=== PATIENT | male | born 1945 | race Caucasian/White ===

== ENCOUNTER → 2018-11-27 | Outpatient (CLI) | payer MEDICARE, BC ==
--- NOTE | 2018-11-27 10:18 | XR ---
EXAM TYPE: LUMBAR SPINE X RAY SERIES COMPARISON: NONE HISTORY: Low back pain TECHNIQUE: 4 views are submitted. FINDINGS: Alignment is anatomic. The pedicles are intact. The transverse processes are intact. There is no s pondylolysis or spondylolisthesis. Hypertrophic and degenerative changes are seen at all levels. IMPRESSION: 1. No acute process. 2. Multilevel degenerative disc disease and hypertrophic spurring.
== END | disposition home or self-care (01) ==
LOC: RADXRMAIN 09:48
PROVIDERS: ATTEND Family Medicine
DX: M51.16 Intervertebral disc disorders with radiculopathy, lumbar region (principal)
CPT/HCPCS: 72100

== ENCOUNTER → 2019-04-22 | Outpatient (CLI) | payer MEDICARE, BC | END | disposition home or self-care (01) | LOC: LABPAT 06:47 | PROVIDERS: ATTEND Orthopaedic Surgery | DX: Z01.812 Encounter for preprocedural laboratory examination (principal); M16.12 Unilateral primary osteoarthritis, left hip | CPT/HCPCS: 87070 ==

== ENCOUNTER 2019-04-29 06:20 | Inpatient (IN) | payer MEDICARE, BC ==
--- NOTE | 2019-04-28 09:18 | HP ---
HISTORY AND PHYSICAL REASON FOR ADMISSION: Surgery is scheduled for 04/29/2019 Ace Hassan is a 73-year-old patient seen with symptomatic left hip osteoarthritis. After treatment options were discussed with him, he elected to proceed with left total hip arthroplasty. Consent regarding procedure was obtained. Medical clearance was provided by Dr. Wilian Peterson. PAST MEDICAL HISTORY: Hypertension. PAST SURGICAL HISTORY: Shoulder surgery. MEDICATIONS: Atenolol and enalapril. ALLERGIES: None reported. SOCIAL HISTORY: Smokes half pack of cigarettes daily. PHYSICAL EXAMINATION: Evaluation of the left hip: There is very limited range of motion with severe pain. Positive hip impingement sign. Diffuse tenderness. Straight leg raise negative. Distal neurovascular exam is intact. RADIOGRAPHS: Radiographs of the left hip reveal severe osteoarthritic changes. IMPRESSION: 1. Left hip osteoarthritis. 2. Hypertension. PLAN: Direct anterior left total hip arthroplasty. Surgery scheduled for 04/29/2019. MMODL / IJN: [id number] /
[~2019-04-29 06:20] MED LIST: ACETAMINOPHEN TAB 500 MG TAB PO ONE; MELOXICAM 7.5 MG TAB PO ONE; ROPIVACAINE 246.25 MG, EPINEPHrine 0.5 MG, KETOROLAC 30 MG, cloNIDine HCL/PF 80 MCG, WA... MISCELLANE ONE; TRANEXAMIC ACID 1,000 MG in SODIUM CHLORIDE 0.9% 100 ML IVPB ONE; ceFAZolin 3 GM in SODIUM CHLORIDE 0.9% 100 ML IVPB ONE
[2019-04-29] MEDS: LACTATED RINGERS 1,000 ML IV SCH ×3 (07:10→23:58)
[2019-04-29] MEDS ORDERED: LIDOCAINE 1% 20 ML VIAL (10MG/ML) FOR IV START SQ ONE (07:11)
[2019-04-29] MEDS ORDERED: DEXAMETHASONE SOD PHOSPHATE 4 MG/ML 1 ML VIAL IV ONE (07:12)
[2019-04-29] MEDS ORDERED: ONDANSETRON 4 MG/2 ML VIAL IVP ONE (07:12)
[2019-04-29] MEDS ORDERED: PROPOFOL 10 MG/ML 20 ML VIAL IV ONE (07:30)
[2019-04-29] MEDS ORDERED: fentaNYL (PF) 50 MCG/ML 2 ML AMP ONE (07:30)
[2019-04-29] MEDS ORDERED: SODIUM CHLORIDE 0.9% 100 ML BAG ONE (07:30)
[2019-04-29] MEDS ORDERED: KETAMINE 10 MG/ML 20 ML VIAL ONE (07:30)
[2019-04-29] MEDS ORDERED: ePHEDrine SULFATE/0.9% NACL/PF 50 MG/5 ML SYRINGE IV ONE (07:30)
[2019-04-29] MEDS ORDERED: TRANEXAMIC ACID 1,000 MG/10 ML VIAL ONE (07:30)
[2019-04-29] MEDS ORDERED: MIDAZOLAM 2 MG/2 ML VIAL ONE (07:30)
[2019-04-29] MEDS ORDERED: LACTATED RINGERS 1,000 ML IV ONE (08:58)
--- NOTE | 2019-04-29 09:49 | FL ---
EXAMINATION TYPE: FL guidance operating room DATE OF EXAM: 04/29/2019 HISTORY: Flouroscopy time 39 seconds of fluoroscopy provided. IMPRESSION: 1. Fluoroscopy time.
--- NOTE | 2019-04-29 09:49 | XR ---
EXAMINATION TYPE: XR Hip Limited LT DATE OF EXAM: 04/29/2019 COMPARISON: NONE HISTORY: Postop TECHNIQUE: One view submitted. FINDINGS: There is postsurgical change in near anatomic alignment. There is soft tissue edema and emphysema. IMPRESSION: 1. Postoperative change. Appears in near-anatomic alignment.
[2019-04-29] MEDS ORDERED: HYDROcodone/APAP 7.5-325MG 1 EACH TAB PO PRN ×2 (09:53)
[2019-04-29] MEDS ORDERED: HYDROmorphone 0.5 MG/0.5 ML SYRINGE IVP PRN ×3 (09:53)
[2019-04-29] MEDS ORDERED: NALOXONE 0.4 MG/ML 1 ML VIAL IV PRN (09:53)
[2019-04-29] MEDS ORDERED: ONDANSETRON 4 MG/2 ML VIAL IVP PRN (09:53)
[2019-04-29] MEDS ORDERED: traMADol 50 MG TAB PO PRN (09:53)
--- NOTE | 2019-04-29 09:53 | P.OP ---
Date of Procedure: 04/29/19 Preoperative Diagnosis: Left hip osteoarthritis Postoperative Diagnosis: Left hip osteoarthritis Procedure(s) Performed: Direct anterior left total hip arthroplasty Implants: 1. Depuy Corail KLA size 15 high offset with collar press-fit femoral stem 2. Depuy pinnacle 60 mm multihole press-fit acetabular shell 3. Depuy pinnacle polyethylene acetabular liner +4 neutral 36 mm ID 60 mm OD 4. Biolox delta ceramic femoral head 36 mm 1.5 Anesthesia: local, spinal Surgeon: Vinnie Alvarado Door Tender #1: Kevyn Acosta Estimated Blood Loss (ml): 1,200 Pathology: other (Femoral head) Condition: stable Disposition: PACU Indications for Procedure: 73-year-old patient seen with symptomatic left hip osteoarthritis. After treatment options were discussed with him, he elected to proceed with direct anterior left total hip arthroplasty. Operative Findings: See description of procedure Description of Procedure: The patient was taken to the operative suite. Patient underwent a spinal anesthetic by the department of anesthesia. Patient was then transferred to the [facility] table. Patient was given preoperative IV antibiotics and TXA. Both lower extremities were placed in standard leg spars. The hip was then prepped and draped in the normal sterile orthopedic fashion. A standard anterior incision was made beginning 3 cm lateral and 1 cm distal to the ASIS extending 10 cm. Dissection was then carried down through the subcutaneous soft tissues down to the fascia overlying the tensor fascia genevieve. An incision was now made through the fascia. Careful dissection was taken down exposing the tensor fascia genevieve muscle. A Cobra retractor was now placed along the medial femoral neck and a second one along the lateral femoral neck. The venous circumflex vessels were now identified, cauterized and clipped. We identified the anterior hip capsule. An incision was made through the hip capsule along the lateral border. I performed a partial anterior capsulectomy. Retractors were now placed around the femoral neck itself. A femoral neck cut was now made with a sagittal saw. It was completed with an osteotome at the lateral neck area. The femoral head was now removed without difficulty. The extremity was now rotated to 45 of external rotation. It was locked in position. Residual labrum was now debrided out. Serial reaming was performed of the acetabulum while Dexter CORRAL assisted holding an anterior retractor for exposure. Once we reached the appropriate size and a trial was position and fit nicely. The appropriate size was now chosen opened and made available. It was introduced into the acetabulum without difficulty. The C-arm/fluoroscopy was now brought into the operative field. We made sure we had a true AP pelvic view. We now under direct C- arm/fluoroscopy introduced into the acetabular component with appropriate version and inclination. I held the cup in appropriate position well Dexter CORRAL used a mallet to seat the acetabular component. I noted the component now to be well seated and stable. Acetabular cup introduce her was removed. The C-arm was pulled back. An appropriate liner was introduced and clicked into position. It was felt to be stable. At this point retractors were removed. The extremity was now placed into 120 external rotation with no traction. The leg was now dropped to the ground and adducted. Appropriate retractors were now positioned along the proximal femur. We also placed our femoral look into position. Additional capsular releasing was performed to gain access to the proximal femur. We now used a box osteotome. A canal finder was now utilized. Serial broaching was now performed with the assistance of Dexter CORRAL tapping the broaches down with a mallet while held the broach in appropriate rotation and position. This was done until we reached the appropriate size with good overall rotational stability. Appropriate calcar planing was performed. A trial head/neck was placed into position. The hip was now reduced. The C- arm/fluoroscopy was brought back into the operative field. A spot film was obtained of the nonoperative hip. A spot film was obtained of the trial components. Overlays were performed, we noted good overall alignment and positioning for determining leg length. The C-arm/fluoroscopy was pulled back. Retractors were repositioned and the hip was dislocated. The leg was again taken down to the ground and adducted. Appropriate retractors were repositioned as well as the femoral hook. All trial components were removed. The femoral implant was opened along with the femoral head. The femoral implant was introduced on the appropriate handle into our pre-broached area. I held the component position well Dexter CORRAL used a mallet to seat the femoral component. The femoral component was now noted to be well seated and stable.. The femoral head was introduced with good positioning and fixation noted. Retractors were now removed. The hip was now reduced. There appeared be good positioning of the hip confirmed on intraoperative fluoroscopy. Spot films were obtained to document this. A second gram of TXA was given. The deep and superficial soft tissues were infiltrated with local analgesic. Bipolar cautery had been utilized intermittently through the procedure for hemostasis. The wound was irrigated copiously with pulse lavage mechanical irrigation. The fascia was repaired with Vicryl suture. The subcutaneous soft tissues were repaired in layers with Vicryl suture. The skin was approximated with perni o/Dermabond. Sterile dressings were applied. Patient was then awakened, transferred to a bed and taken to recovery in stable condition. Dexter CORRAL assisted with the complex procedure.
[2019-04-29 11:43] VITALS: BMI 39.5
[2019-04-29] MEDS: ceFAZolin 3 GM in SODIUM CHLORIDE 0.9% 100 ML IVPB SCH ×2 (17:01→23:56)
[2019-04-29] MEDS ORDERED: ACETAMINOPHEN TAB 500 MG TAB PO PRN (17:35)
[2019-04-29] MEDS: ATENOLOL 50 MG TAB PO SCH (20:30)
[2019-04-29] MEDS: LISINOPRIL 20 MG TAB PO SCH (20:30)
[2019-04-29] MEDS ORDERED: SENNOSIDES-DOCUSATE SODIUM 1 EACH TAB PO SCH (21:00)
[2019-04-30] MEDS: LACTATED RINGERS 1,000 ML IV SCH (05:55)
[2019-04-30 06:30] LABS: Basophils # (A) 0.1 k/uL (0-0.2); Basophils % (A) 1 %; Eosinophils % (A) 0 %; Hypochromasia Slight; Lymphocytes # (A) 1.2 k/uL (1.0-4.8); Lymphocytes % (A) 12 %; MCH 26.9 pg (25.0-35.0); MCHC 31.4 g/dL (31.0-37.0); MCV 85.6 fL (80.0-100.0); Mean Platelet Volume 11.3; Monocytes # (A) 1.7 k/uL (0-1.0); Monocytes % (A) 17 %; Neutrophils # (A) 7.1 k/uL (1.3-7.7); Neutrophils % (A) 68 %; Platelet Count 126 k/uL (150-450); RBC 3.97 m/uL (4.30-5.90); RDW 14.2 % (11.5-15.5); WBC 10.4 k/uL (3.8-10.6)
[2019-04-30 06:31] LABS: HGB 10.7 gm/dL (13.0-17.5)
[2019-04-30] MEDS: LISINOPRIL 20 MG TAB PO SCH (08:09)
[2019-04-30] MEDS: ATENOLOL 50 MG TAB PO SCH (08:15)
[2019-04-30 08:54] VITALS: BP 113/67; PULSE 74; RESP 16; TEMP 98
[2019-04-30] MEDS ORDERED: ASPIRIN 81 MG PO SCH (09:00)
[2019-04-30] MEDS ORDERED: FAMOTIDINE 20 MG TAB PO SCH (09:00)
[2019-04-30] MEDS ORDERED: ENOXAPARIN 40 MG/0.4 ML SYRINGE SQ SCH (09:00)
[2019-04-30] MEDS ORDERED: MELOXICAM 7.5 MG TAB PO SCH (09:00)
--- NOTE | 2019-04-30 11:20 | P.PN ---
Subjective Progress Note Date: 04/30/19 Principal diagnosis: Status post direct anterior left total hip arthroplasty Patient evaluated bedside, he is resting comfortably. He has done well therapy. His pain is well-controlled. Denies any chest pain or shortness of breath. Objective - Vital Signs Vital signs: Vital Signs Temp 98 F 04/30/19 07:00 Pulse 74 04/30/19 07:00 Resp 16 04/30/19 07:00 BP 113/67 04/30/19 07:00 Pulse Ox 96 04/30/19 07:00 Intake & Output 04/29/19 04/30/19 04/30/19 18:59 06:59 18:59 Intake Total 2150 Output Total 1400 Balance 750 Intake: IV 2150 Output: Urine 200 Estimated Blood Loss 1200 Other: Voiding Method Toilet # Voids 1 1 - Exam Left lower extremity: Incision is clean, dry, and intact. The exofin fusion tape is in good condition. There is minimal soft tissue swelling and ecchymosis surrounding the medial and lateral aspects of the incision. Calf is soft, no tenderness with palpation. Plantar flexion, dorsiflexion, EHL, FHL are intact. Sensory exam to light touch throughout the extremity is intact, dorsal pedis pulses 2+. - Labs CBC & Chem 7: 04/30/19 06:03 Labs: Abnormal Lab Results - Last 24 Hours (Table) 04/30/19 Range/Units 06:03 RBC 3.97 L (4.30-5.90) m/uL Hgb 10.7 L D (13.0-17.5) gm/dL Hct 34.0 L (39.0-53.0) % Plt Count 126 L (150-450) k/uL Monocytes # 1.7 H (0-1.0) k/uL Assessment and Plan Plan: Assessment: Postoperative day #1 status post direct anterior left total hip arthroplasty Plan: Pain control, we'll discharge home on oral medication GI and DVT prophylaxis, aspirin 325 mg daily for a month Wound care instructions were discussed Home physical therapy and nursing after discharge Medical recommendations Discharge home today Time with Patient: Less than 30
--- NOTE | 2019-04-30 11:24 | P.DS ---
Providers Date of admission: 04/29/19 06:20 Expected date of discharge: 04/30/19 Attending physician: Vinnie Alvarado Consults: 04/29/19 09:53 Consult Physician Routine Consulting Provider: Wilian Peterson Reason/Comments: Medical management Do you want consulting provider notified?: Yes Primary care physician: Wilian Peterson [facility] Course: Date of admission: 04/29/2019 Date of discharge: 04/30/2019 Admission diagnosis: Status post direct anterior left total hip arthroplasty Discharge diagnosis: Same Attending physician: Dr. Alvarado Surgical procedures: Direct anterior left total hip arthroplasty Brief history: Patient is a 73-year-old male with a history of progressive primary left posterior arthritis. At this point patient has failed conservative treatment measures and has opted to proceed with a elective direct anterior left total hip arthroplasty. Hospital course: Details of patient's surgery can be found in operative report. Patient tolerated the procedure well and was subsequently transported to orthopedic floor. Patient's orthopeidc and medical care was provided daily. Patient had daily laboratory tests performed for evaluation of overall blood counts. Patient had daily physical therapy to include strengthening range of motion as well as education with walker ambulation. Patient was treated with Lovenox for their postoperative DVT prophylaxis during their inpatient stay. Patient was noted to have a relatively uneventful postoperative course. Patient reported satisfactory pain control with oral pain medications by postoperative d ay 0. Patient showed satisfactory progress with physical therapy. Patient moved steadily through the program and had no difficulty meeting the goals by postoperative day 1. Given patient's otherwise satisfactory course and having met physical therapy goals, plan is to discharge patient home on postoperative day 1. Discharge condition/disposition: Patient will be discharged home in stable condi tion. Discharge medications: Instructions are given on resumption of patient's normal daily medications per primary care recommendation, in addition patient will be prescribed Edwards 5 mg/325 mg, Colace 100 mg, Pepcid 20 mg. Discharge instructions: 1. Wound care and infection precautions, keep incision dry and covered while showering, no lotions, creams, moisturizers. No soaking, tubs, pools, hottubs. Do not scrub over the incision. 2. Weight-bear as tolerated with walker / cane until follow-up. 3. Ice and elevate when necessary. Do not exceed 20 minutes per hour with ice pack. 4. Utilize compression sleeve until seen at first follow up appointment. 5. Visiting nursing care. 6. Home physical therapy . 7. Pain meds and anticoagulants per prescription. 8. Pain medication has potential to cause constipation. Increase oral fluid and fiber intake. Contact primary care provider if you have not had a bowel movement within 48 hours after discharge 9. No anti-inflammatory medication until discussed at first post operative visit, this including Motrin, Aleve, Mobic, Diclofenac. 10. Follow up in office at 2 weeks postop with Dexter Acosta PA-C 11. Follow up with your primary care doctor 7-10 days after discharge. 12. Contact [facility] with any questions, . Procedures: Direct anterior left total hip arthroplasty Patient Condition at Discharge: Good Plan - Discharge Summary Discharge Rx Participant: Yes New Discharge Prescriptions: New Aspirin 325 mg PO DAILY #30 tab Docusate [Colace] 100 mg PO DAILY #30 capsule Hydrocodone/Acetaminophen [Edwards 5-325] 1 each PO Q6HR PRN #21 tab PRN Reason: Pain No Action Acetaminophen Tab [Tylenol Tab] 500 mg PO Q6H PRN PRN Reason: Pain Multivitamins, Thera [Multivitamin (formulary)] 1 tab PO DAILY Cholecalciferol (Vitamin D3) [Vitamin D3] 5,000 unit PO DAILY Aspirin [Adult Low Dose Aspirin EC] 81 mg PO DAILY Naproxen Sodium [Aleve] 220 mg PO Q12HR Enalapril [Vasotec] 20 mg PO BID Atenolol [Tenormin] 50 mg PO BID Discharge Medication List Acetaminophen Tab [Tylenol Tab] 500 mg PO Q6H PRN 04/24/19 [History] Aspirin [Adult Low Dose Aspirin EC] 81 mg PO DAILY 04/24/19 [History] Atenolol [Tenormin] 50 mg PO BID 04/24/19 [History] Cholecalciferol (Vitamin D3) [Vitamin D3] 5,000 unit PO DAILY 04/24/19 [History] Enalapril [Vasotec] 20 mg PO BID 04/24/19 [History] Multivitamins, Thera [Multivitamin (formulary)] 1 tab PO DAILY 04/24/19 [History] Naproxen Sodium [Aleve] 220 mg PO Q12HR 04/24/19 [History] Aspirin 325 mg PO DAILY #30 tab 04/30/19 [Rx] Docusate [Colace] 100 mg PO DAILY #30 capsule 04/30/19 [Rx] Hydrocodone/Acetaminophen [Edwards 5-325] 1 each PO Q6HR PRN #21 tab 04/30/19 [Rx] Follow up Appointment(s)/Referral(s): Wilian Peterson DO [Primary Care Provider] - 05/03/19 8:30 am [facility], [NON-STAFF] - Kevyn Acosta PAC [PHYSICIAN POLISHER HAND] - 05/15/19 3:40 pm Patient Instructions/Handouts: Total Hip Replacement (DC), Anterior Hip Replacement (DC) Activity/Diet/Wound Care/Special Instructions: Orthopedic Discharge Instructions: 1. Wound care and infection precautions, keep incision dry and covered while showering, no lotions, creams, moisturizers. No soaking, pools, hot tubs. Do not scrub over incision. 2. Weight-bear as tolerated with walker / cane until follow-up. 3. Ice and elevate when necessary. Do not exceed 20 minutes per hour with ice pack. 4. Utilize compression sleeve until seen at first follow up appointment. 5. Pain meds and anticoagulants per prescription. 6. Pain medication has potential to cause constipation. Increase oral fluid and fiber intake. Contact primary care provider if you have not had a bowel movement within 48 hours after discharge. 7. No anti-inflammatory medication until discussed at first post operative visit, this including Motrin, Aleve, Mobic, Diclofenac. 8. Follow up in office at 2 weeks postop with Dexter Acosta PA-C 9. Follow up with your primary care doctor 7-10 days after discharge. 10. Contact [facility] with any questions, . Discharge Disposition: HOME WITH HOME HEALTH SERVICES
--- NOTE | 2019-05-01 23:31 | P.CONS ---
History of Present Illness - Reason for Consult Consult date: 04/30/19 - History of Present Illness this a pleasant 73-year-old white male was asked to consult and participate regarding total left hip arthroplasty. Patient underwent conservative management of left degenerative hip which had failed and he had no course to undergo elective total hip arthroplasty. He's currently at bedside doing well he's in tooth that physical therapy last evening and coming today he denies any problems he's eating well he denies any chest pain or shortness of breath. Review of Systems GENERAL: Patient denies fever. Denies chills. EYES: Denies blurred vision. Denies vision changes. Denies eye pain. EARS, NOSE, MOUTH, & THROAT: Denies headache. Denies sore throat. Denies ear pain. RESPIRATORY: Denies cough. Denies shortness of breath. Denies sputum production. Denies hemoptysis. CARDIOVASCULAR: Denies chest pain or pressure. Denies palpitations. Denies arrh ythmias. GASTROINTESTINAL: Denies abdominal pain. Denies diarrhea. Denies constipation. Denies nausea. Denies vomiting. Denies heartburn. Denies blood in the stool. GENITOURINARY: Denies urinary frequency. Denies burning. Denies dysuria. Denies cloudy urine. Denies blood in the urine. MUSCULOSKELETAL: admits to left hip pain with AVD pad anterior left hip .. INTEGUMENTARY: Denies pruitis. Denies rash. PSYCHIATRIC: Denies suicidal or homicial ideations. ENDOCRINE: Denies weight change. Denies polydipsia. Denies polyuria. HEMATOLOGIC: Denies bleeding disorders. Past Medical History Past Medical History: Cancer, Hypertension, Skin Disorder Additional Past Medical History / Comment(s): hx gout, psoriasis, hx skin cancer History of Any Multi-Drug Resistant Organisms: None Reported Past Surgical History: Orthopedic Surgery, Tonsillectomy Additional Past Surgical History / Comment(s): rt shoulder rotator cuff, christopher heel spurs, skin cancer removed from forehead and nose Past Anesthesia/Blood Transfusion Reactions: No Reported Reaction Past Psychological History: No Psychological Hx Reported Smoking Status: Current every day smoker Past Alcohol Use History: Occasional Additional Past Alcohol Use History / Comment(s): smoking 1/2 PPD, has smoked since age 17, quit for 9 yrs and started again Past Drug Use History: None Reported - Past Family History Father Family Medical History: Cancer Medications and Allergies Home Medications Medication Instructions Recorded Confirmed Type Acetaminophen Tab [Tylenol Tab] 500 mg PO Q6H PRN 04/24/19 04/29/19 History Aspirin [Adult Low Dose Aspirin EC] 81 mg PO DAILY 04/24/19 04/24/19 History Atenolol [Tenormin] 50 mg PO BID 04/24/19 04/29/19 History Cholecalciferol (Vitamin D3) 5,000 unit PO DAILY 04/24/19 04/24/19 History [Vitamin D3] Enalapril [Vasotec] 20 mg PO BID 04/24/19 04/29/19 History Multivitamins, Thera [Multivitamin 1 tab PO DAILY 04/24/19 04/24/19 History (formulary)] Naproxen Sodium [Aleve] 220 mg PO Q12HR 04/24/19 04/24/19 History Aspirin 325 mg PO DAILY #30 tab 04/30/19 Rx Docusate [Colace] 100 mg PO DAILY #30 capsule 04/30/19 Rx Hydrocodone/Acetaminophen [[place] 1 each PO Q6HR PRN #21 tab 04/30/19 Rx 5-325] Allergies Allergy/AdvReac Type Severity Reaction Status Date / Time No Known Allergies Allergy Verified 04/29/19 06:53 Physical Exam Osteopathic Statement: *. No significant issues noted on an osteopathic structural exam other than those noted in the History and Physical/Consult. GENERAL: This is a -78year-old in no apparent distress at the time of examination. Pleasant and cooperative. HEENT: Head is atraumatic, normocephalic. Pupils are equal, round, and reactive to light. Sclerae anicteric. Conjunctivae are clear. Mucus membranes of the mouth are moist. Neck is supple. RESPIRATORY: Clear to auscultation. No wheezes, rales, or rhonchi. No use of accessory muscles. Patient maintaining oxygen saturation greater than 92%. No chest wall tenderness is noted on palpation or with deep breathing. CARDIOVASCULAR: Regular rate and rhythm. S1 and S2 noted. No systolic or diastolic murmur auscultated. No JVD noted. No S3 or S4 noted. GASTROINTESTINAL: No distention noted. Abdomen soft and round. Normal active bowel sounds auscultated x 4 quadrants. No pain or tenderness noted upon palpation. INTEGUMENTARY: No cyanosis. No jaundice. No rashes noted. No cellulitis noted. EXTREMITIES: 2+ peripheral pulses. No evidence of peripheral edema. No calf tenderness noted. tenderness noted in the eft anterior hip secondary to surgery with ABVD pad incision clean dry. NEUROLOGIC: Cranial nerves II-XII intact. PSYCHIATRIC: Awake, alert, and oriented X 3. Appropriate affect. Intact judgement and insight. Results CBC & Chem 7: 04/30/19 06:03 Assessment and Plan (1) Osteoarthritis of left hip Status: Acute Code(s): M16.12 - UNILATERAL PRIMARY OSTEOARTHRITIS, LEFT HIP SNOMED Code(s): 703594460311596 (2) Status post total hip replacement, left Status: Acute Code(s): Z96.642 - PRESENCE OF LEFT ARTIFICIAL HIP JOINT SNOMED Code(s): 935492386980 Plan: admit patient pain control DVT prophylaxis early ambulation and physical therapy all in progress. Patient is cleared to be discharged as soon as orthopedic says okay continue his home medications will be reordered nothing further to addthank you for allowing me to participate in this patient's care
== END 2019-04-30 13:13 | disposition home health service (06) | DRG 470 ==
LOC: 2ORMAIN 06:20 → 4SSUR 10:12
PROVIDERS: ADMIT Orthopaedic Surgery; ATTEND Orthopaedic Surgery
PROC: 0SRB04A Replacement of Left Hip Joint with Ceramic on Polyethylene Synthetic Substitute, Uncemented, Open Approach (ICD-10-PCS; principal; 2019-04-29 07:30)
DX: M16.12 Unilateral primary osteoarthritis, left hip (principal); I10 Essential (primary) hypertension; F17.210 Nicotine dependence, cigarettes, uncomplicated; M10.9 Gout, unspecified; L40.9 Psoriasis, unspecified; Z79.82 Long term (current) use of aspirin; Z79.899 Other long term (current) drug therapy
CPT/HCPCS: 73501; 85025; 86850; 86900; 86901; 88300

== ENCOUNTER → 2023-01-04 | Outpatient (CLI) | payer MEDICARE, BC ==
--- NOTE | 2023-01-04 12:30 | XR ---
EXAMINATION TYPE: XR chest 2V DATE OF EXAM: 01/04/2023 COMPARISON: None TECHNIQUE: PA and lateral views submitted. HISTORY: Shortness of breath FINDINGS: There is a 4 cm right upper lobe. Consolidative pneumonia or mass. The heart is enlarged and there is no pleural effusion or pneumothorax. Coarsened interstitium likely represents chronic interstitial lung disease. Atherosclerotic change aorta and arthropathy of the sh oulder. Hyperinflation suggests COPD. Nodular prominence of the right hilum. IMPRESSION: 1. There is a 4 cm masslike consolidation right upper lobe correlate for pneumonia or neoplasm. CT of the chest recommended. Right hilar prominence could represent adenopathy or aneurysm of the aorta. R eport called to the patient's referring clinician 12:23 PM 01/14/2023. 2. Cardiomegaly, COPD correlate for chronic interstitial lung disease.
== END | disposition home or self-care (01) ==
LOC: LABWHC1 11:49
PROVIDERS: ATTEND Nurse Practitioner Family
DX: I51.7 Cardiomegaly (principal); J44.9 Chronic obstructive pulmonary disease, unspecified
CPT/HCPCS: 71046

== ENCOUNTER → 2023-01-04 | Outpatient (CLI) | payer MEDICARE, BC ==
[2023-01-04 15:10] LABS: African American GFR (CKD) 85 (>60 ml/min/1.73 sqM); Blood Urea Nitrogen 22 mg/dL (9-20); Non-African American GFR(CKD) 74 (>60 ml/min/1.73 sqM)
--- NOTE | 2023-01-04 16:00 | CT ---
EXAMINATION TYPE: CT chest w con DATE OF EXAM: 01/04/2023 COMPARISON: Chest x-ray earlier today HISTORY: abnormal finding of lung field CT DLP: 823.8 mGycm. Automated Exposure Control for Dose Reduction was Utilized. TECHNIQUE: CT scan of the thorax is performed following with IV Contrast, patient injected with 100m l mL of Isovue 300. FINDINGS: LUNGS: Patchy groundglass opacities with organizing nodular consolidations in the right upper lobe ar e confirmed. No suspicious 4.0 cm mass. Left lung is clear There is no pleural effusion or pneumotho rax seen bilaterally. The tracheobronchial tree is patent. MEDIASTINUM: There are prominent but subcentimeter prevascular lymph nodes. Prominent but subcentimet er right paratracheal lymph nodes. No pericardial effusion is seen. Cardiomegaly. Moderate biatrial dilatation. Calcification level of the mitral and aortic valve. Moderate to severe coronary artery c alcification. Enlarged pulmonary arteries consistent with underlying pulmonary artery hypertension OTHER: Small sized hiatal hernia. There is 1.8 cm simple appearing thin-walled cyst in the anterior l iver axial image 56. IMPRESSION: Patchy groundglass opacities and organizing consolidation throughout the right upper lobe suspicious for developing pneumonia. Correlate clinically.
== END | disposition home or self-care (01) ==
LOC: RADCTMAIN 14:25
PROVIDERS: ATTEND Family Medicine
DX: R91.8 Other nonspecific abnormal finding of lung field (principal)
CPT/HCPCS: 82565; 84520; 71260; 36415; Q9967

== ENCOUNTER → 2023-02-01 | Outpatient (CLI) | payer MEDICARE, BC ==
--- NOTE | 2023-02-01 17:34 | XR ---
EXAMINATION TYPE: XR chest 2V DATE OF EXAM: 02/01/2023 5:13 PM COMPARISON: Chest radiographs from 01/04/2023 TECHNIQUE: XR chest 2V Frontal and lateral views of the chest. CLINICAL INDICATION:Male, 77 years old with history of J18.9 PNEUMONIA; FINDINGS: Lungs/Pleura: There is flattening of the diaphragm with increased lucency of the lungs. No evidence o f pneumothorax, pleural effusion or focal consolidation. Pulmonary vascularity: Unremarkable. Heart/mediastinum: Cardiomediastinal silhouette is unremarkable. Atherosclerotic calcifications are seen in the aorta. Musculoskeletal: No acute osseous pathology. IMPRESSION: 1. No acute cardiopulmonary disease process. 2. COPD changes.
== END | disposition home or self-care (01) ==
LOC: RADXRMAIN 09:28
PROVIDERS: ATTEND Nurse Practitioner Family
DX: J44.9 Chronic obstructive pulmonary disease, unspecified (principal); I70.0 Atherosclerosis of aorta; J18.9 Pneumonia, unspecified organism
CPT/HCPCS: 71046

== ENCOUNTER 2024-11-30 10:37 | Emergency (ER) | payer MEDICARE, BC ==
[2024-11-30 10:41] VITALS: RESP 18
--- NOTE | 2024-11-30 11:15 | ED ---
Back Pain [facility] - General Chief Complaint: Back Pain/Injury Stated Complaint: back pain Time Seen by Provider: 11/30/24 11:15 Source: patient, family (), RN notes reviewed Limitations: no limitations - History of Present Illness Initial Comments: 79-year-old male presented to the ER for evaluation of back pain. He recently started seeing a chiropractor as he felt he needed a "adjustment". His first appointment was on 11-26-2024. Since then he has been endorsing a spasming/cramping left lumbar back pain. There is radiation to his left lower extremity. He states this pain makes it difficult for him to ambulate and move. He has tried [id number] I[employer] and massage without relief of discomfort. He denies any prior back surgeries. Denies any saddle paresthesias, bowel or bladder incontinence/retention, fevers or history of IV drug abuse. He denies weakness to lower extremities. No other complaints. - Related Data Home Medications Medication Instructions Recorded Confirmed Acetaminophen Tab [Tylenol Tab] 500 mg PO Q6H PRN 04/24/19 04/29/19 Aspirin [Adult Low Dose Aspirin EC] 81 mg PO DAILY 04/24/19 04/24/19 Cholecalciferol (Vitamin D3) 5,000 unit PO DAILY 04/24/19 04/24/19 [Vitamin D3] Enalapril [Vasotec] 20 mg PO BID 04/24/19 04/29/19 Multivitamins, Thera [Multivitamin 1 tab PO DAILY 04/24/19 04/24/19 (formulary)] Naproxen Sodium [Aleve] 220 mg PO Q12HR 04/24/19 04/24/19 atenoloL [Tenormin] 50 mg PO BID 04/24/19 04/29/19 Previous Rx's Medication Instructions Recorded Aspirin 325 mg PO DAILY #30 tab 04/30/19 Docusate [Colace] 100 mg PO DAILY #30 capsule 04/30/19 Hydrocodone/Acetaminophen [Parrott 1 each PO Q6HR PRN #21 tab 04/30/19 5-325] Cyclobenzaprine [Flexeril] 10 mg PO TID PRN #15 tab 11/30/24 Lidocaine 5% Patch [Lidoderm] 1 patch TOPICAL DAILY #30 patch 11/30/24 predniSONE 50 mg PO DAILY #5 tab 11/30/24 Allergies Allergy/AdvReac Type Severity Reaction Status Date / Time No Known Allergies Allergy Verified 11/30/24 10:41 Review of Systems ROS Statement: Those systems with pertinent positive or pertinent negative responses have been documented in the HPI. ROS Other: All systems not noted in ROS Statement are negative. Past Medical History Past Medical History: Cancer, Hypertension, Skin Disorder Additional Past Medical History / Comment(s): hx gout, psoriasis, hx skin cancer History of Any Multi-Drug Resistant Organisms: None Reported Past Surgical History: Orthopedic Surgery, Tonsillectomy Additional Past Surgical History / Comment(s): rt shoulder rotator cuff, christopher heel spurs, skin cancer removed from forehead and nose Past Anesthesia/Blood Transfusion Reactions: No Reported Reaction Past Psychological History: No Psychological Hx Reported Smoking Status: Former smoker Past Alcohol Use History: Occasional Past Drug Use History: None Reported - Past Family History Father Family Medical History: Cancer General Exam Limitations: no limitations General appearance: alert, in no apparent distress Respiratory exam: Present: normal lung sounds bilaterally. Absent: respiratory distress, wheezes, rales, rhonchi, stridor Cardiovascular Exam: Present: regular rate, normal rhythm, normal heart sounds. Absent: systolic murmur, diastolic murmur, rubs, gallop, clicks Extremities exam: Present: normal inspection, full ROM, normal capillary refill (2+ bilateral DP pulses.). Absent: tenderness, pedal edema, joint swelling, calf tenderness Back exam: Present: normal inspection, full ROM, paraspinal tenderness (Left) Neurological exam: Present: alert, oriented X3, CN II-XII intact, normal gait, reflexes normal, other (Negative straight leg raise bilaterally.) Skin exam: Present: warm, dry, intact, normal color. Absent: rash Course Vital Signs 11/30/24 11/30/24 10:39 12:16 Temperature 97.9 F 98.0 F Pulse Rate 62 73 Respiratory 18 18 Rate Blood Pressure 138/80 129/84 O2 Sat by Pulse 96 100 Oximetry Medical Decision Making - Medical Decision Making Was pt. sent in by a medical professional or institution (, PA, WATERWAY TRAFFIC CHECKER, urgent care, hospital, or prison...) When possible be specific @ -No Did you speak to anyone other than the patient for history (EMS, parent, family, police, friend...)? What history was obtained from this source @ -Patient's , at bedside, aiding in HPI past medical history. Did you review nursing and triage notes (agree or disagree)? Why? @ -I reviewed and agree with nursing and triage notes Were old charts reviewed (outside hosp., previous admission, EMS record, old EKG, old radiological studies, urgent care reports/EKG's, prison records)? Report findings @ -No old charts were reviewed Differential Diagnosis (chest pain, altered mental status, abdominal pain women, abdominal pain men, vaginal bleeding, weakness, fever, dyspnea, syncope, headache, dizziness, GI bleed, back pain, seizure, CVA, palpatations, mental health, musculoskeletal)? @ -Differential Back Pain:Strain, zoster, cauda equina syndrome, epidural abscess, vertebral osteomyelitis, discitis, fracture, subluxation, disc herniation, DJD, spinal stenosis, dissection, AAA, pancreatitis, peptic ulcer disease, pyelonephritis, kidney stone, this is not meant to be an all-inclusive list. EKG interpreted by me (3pts min.). @ -None done X-rays interpreted by me (1pt min.). @ -Lumbar spine x-ray showed no acute fractures or dislocations. Degenerative disc disease. CT interpreted by me (1pt min.). @ -None done U/S interpreted by me (1pt. min.). @ -None done What testing was considered but not performed or refused? (CT, X-rays, U/S, labs)? Why? @ -None What meds were considered but not given or refused? Why? @ -None Did you discuss the management of the patient with other professionals (vance thompson i.eJose Aragon, PA, WATERWAY TRAFFIC CHECKER, lab, RT, psych nurse, director social welfare, civil lawyer, teacher, prison officer, test case developer)? Give summary @ -No Was smoking cessation discussed for >3mins.? @ -No Was critical care preformed (if so, how long)? @ -No Were there social determinants of health that impacted care today? How? (Homelessness, low income, unemployed, alcoholism, drug addiction, transportation, low edu. Level, literacy, decrease access to med. care, detention, rehab)? @ -No Was there de-escalation of care discussed even if they declined (Discuss DNR or withdrawal of care, Hospice)? DNR status @ -No What co-morbidities impacted this encounter? (DM, HTN, Smoking, COPD, CAD, Cancer, CVA, ARF, Chemo, Hep., AIDS, mental health diagnosis, sleep apnea, morbid obesity)? @ -None Was patient admitted / discharged? Hospital course, mention meds given and route, prescriptions, significant lab abnormalities, going to OR and other pertinent info. @ -Discharge. 79-year-old male presented the ER for evaluation of back pain. Vitals within acceptable limits. No red flags indicative of cauda equina syndrome. Patient is neurovascularly intact. X-rays obtained negative for acute process, degenerative disc disease noted. Patient given symptomatic treatment with Norflex, lidocaine and Tylenol. Pain believed to be musculoskeletal/sciatica. Patient will be discharged with a prescription of Fle xeril, lidocaine and prednisone and instructed to follow-up closely with PCP. I also recommend continue use of Tylenol, massage, stretch and heat. Return parameters discussed. Patient discharged stable condition. Patient verbally expressed understanding agreement with care plan. Case discussed with ED attending of Dr. Huber. Undiagnosed new problem with uncertain prognosis? @ -No Drug Therapy requiring intensive monitoring for toxicity (Heparin, Nitro, Insulin, Cardizem)? @ -No Were any procedures done? @ -No Diagnosis/symptom? @ -Back pain Acute, or Chronic, or Acute on Chronic? @ -Acute Uncomplicated (without systemic symptoms) or Complicated (systemic symptoms)? @ -Uncomplicated Side effects of treatment? @ -No Exacerbation, Progression, or Severe Exacerbation? @ -No Poses a threat to life or bodily function? How? (Chest pain, [place], VT, pneumonia, PE, COPD, DKA, ARF, appy, cholecystitis, CVA, Diverticulitis, Homicidal, Suicidal, threat to staff... and all critical care pts) @ -Low - Radiology Data Radiology results: report reviewed, image reviewed Disposition Clinical Impression: Sciatica Disposition: HOME SELF-CARE Condition: Stable Instructions (If sedation given, give patient instructions): Sciatica (ED), Acute Low Back Pain (ED), Lower Back Exercises (ED) Additional Instructions: Follow-up with PCP. You may take Flexeril as prescribed please be aware this medication may make you drowsy or sleepy. Do not have operate heavy machinery or drive while taking this medication. Take prednisone as prescribed. Return to the ER for any new or worsening concerns. Prescriptions: Cyclobenzaprine [Flexeril] 10 mg PO TID PRN #15 tab PRN Reason: Muscle Spasm Lidocaine 5% Patch [Lidoderm] 1 patch TOPICAL DAILY #30 patch predniSONE 50 mg PO DAILY #5 tab Is patient prescribed a controlled substance at d/c from ED?: No Referrals: Wilian Peterson DO [Primary Care Provider] - 1-2 days Time of Disposition: 11:55
[2024-11-30] MEDS: LIDOCAINE 4% PATCH TOPICAL ONE (11:21)
[2024-11-30] MEDS: ACETAMINOPHEN TAB 325 MG TAB PO STA (11:21)
[2024-11-30] MEDS: ORPHENADRINE 30 MG/ML 2 ML VIAL IM STA (11:22)
--- NOTE | 2024-11-30 11:40 | XR ---
EXAMINATION TYPE: XR lumbar spine 2 or 3V DATE OF EXAM: 11/30/2024 CLINICAL HISTORY: pain TECHNIQUE: Three views of the lumbar spine are submitted. COMPARISON: Lumbar spine radiograph 11/27/2018 FINDINGS: There are 5 lumbar type vertebral bodies identified. No acute fracture. Grade 1 retrolisthesis of L1 on L2 and L2 on L3. Vertebral body heights are within normal limits. Multilevel disc space narrowin g with endplate sclerosis and anterior osteophytosis. The overlying soft tissue appears unremarkable . IMPRESSION: 1. No acute fracture or dislocation is seen in the lumbar spine. 2. Mild to moderate multilevel degenerative disc disease. [facility], , 11/30/2024 11:38 AM
[2024-11-30 12:18] VITALS: BP 129/84; PULSE 73; TEMP 98
== END 2024-11-30 12:41 | disposition home or self-care (01) ==
LOC: EC 10:37
DX: M54.42 Lumbago with sciatica, left side (principal); Z87.891 Personal history of nicotine dependence
CPT/HCPCS: 72100; 99283; 96372; J2360